=== PATIENT | male | born 1930 | race Caucasian/White ===

== ENCOUNTER 2016-12-05 22:09 | Inpatient (IN) | payer MEDICARE, OTHER ==
--- NOTE | ~2016-12-05 | HP ---
History And Physical [place] [id number] [facility] [place]. [address] NAME: RAINER TJEADA JR : 29 STATUS : ADM Shiva PAT#: [id number] AGE: 86 ADM/REG DATE : 12/05/16 MR#: [id number] REPORT SERV DATE: 12/06/16 DICTATED BY: ZAIDA RANDALL DATE: 12/06/16 REPORT STATUS : Draft TRANSCRIBED BY: MODL DATE: 12/06/16 DATE OF ADMISSION: 12/05/2016 CHIEF COMPLAINT: An 86-year-old male, presenting with new onset of atrial fibrillation. HISTORY OF PRESENT ILLNESS: The patient's history was obtained through careful interview with the patient, coupled with review of [facility] medical records. The patient makes a point to note that he has had considerable stress recently. He became a in October 2013 and has been recently dating a "girlfriend," but there has been relational difficulty that he thinks is contributing to his illness. Of particular concern is that the patient has felt "dizzy" since about October 2016. He has had some shortness of breath characterized by dyspnea on exertion, but denies any orthopnea. He has noticed new onset lower extremity edema recently as well. He describes a sinus headache about 5/10 severity with some drainage. He has noticed some new onset palpitations as well, and over last few weeks, he has felt unsteady in his gait secondary to intermittent dizziness and palpitations. He has had a cough productive of a clear sputum, but has had a hoarseness to his voice associated with his dyspnea on exertion. No chest pain. Then, about three days ago, by the patient's estimate, he was walking outside in the field and suddenly became very dizzy. He collapsed to the ground and almost passed out. He had to sit on the ground for several minutes before he felt well enough to get up again, but he found that he lost his ability to speak for about 15 minutes and was slightly confused. He states that he went to [facility], was evaluated there for possible stroke and had a "negative" workup and was discharged from the emergency department. REVIEW OF SYSTEMS: Otherwise, a 14-point review of systems was obtained and was negative. PAST MEDICAL HISTORY: 1. Coronary artery disease, status post stent placement in 1998. Negative stress test in 2006. 2. Chronic kidney disease, stage III. Baseline creatinine of 1.5 to 2.2. 3. Elevated cholesterol. 4. Sinusitis. 5. Pneumonia, 2016. PAST SURGICAL HISTORY: 1. Bilateral knee surgery. 2. Nose fracture surgery. History And Physical [address] [place]. [address] NAME: RAINER TEJADA JR : 29 STATUS : ADM Shiva PAT#: [id number] AGE: 86 ADM/REG DATE : 12/05/16 MR#: [id number] REPORT SERV DATE: 12/06/16 DICTATED BY: ZAIDA RANDALL DATE: 12/06/16 REPORT STATUS : Draft TRANSCRIBED BY: LINA DATE: 12/06/16 3. Back surgery .. ALLERGIES: NO KNOWN DRUG ALLERGIES. SOCIAL HISTORY: Became a in October 2013. He lives alone in [place], [place]. He has two children, one live in [place], one child lives in [place]. No tobacco abuse history. No alcohol use history. 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 CURRENT MEDICATIONS: Include aspirin 81 mg p.o. daily, vitamin D, vitamin B12, multivitamin, Zocor 20 mg p.o. daily, eyedrops, some kind of diuretic medication, coenzyme Q10, folic acid, garlic supplement, fish oil. PHYSICAL EXAMINATION: VITAL SIGNS: Temperature 98.0, pulse 113, blood pressure 162/95, respiratory rate 15, O2 saturation 99% on room air. GENERAL: A pleasant, cooperative male. He is in no evidence of distress at this time. NEUROLOGICAL: Cranial nerves II through XII are intact and symmetrical. The patient has 5/5 strength in upper and lower extremities that is symmetrical. HEENT: Pupils equal, round, and reactive to light. No conjunctival pallor. No scleral icterus. Nares are patent. Oropharynx is clear of obstruction. Moist mucous membranes. NECK: Trachea midline. No thyromegaly. LYMPHS: No cervical lymphadenopathy. No supraclavicular lymphadenopathy. RESPIRATORY: The patient does have some scattered mild rhonchi on examination. There may be some wet crackles at the very base of lungs, but not too severe. No wheezes at this time. The patient has a nonlabored respiratory effort. CARDIOVASCULAR: Irregularly irregular with tachycardia. No murmurs, rubs, or gallops. The patient does have pitting lower extremity edema around the ankles and shins. ABDOMEN: Soft, nontender, nondistended. Normal bowel sounds auscultated throughout. No organomegaly. DERMATOLOGICAL: Warm and dry extremities. No pallor. No cyanosis. PSYCHIATRIC: The patient admits to feeling stressed and feels a bit anxious. He has somewhat anxious and animated affect. He is alert and oriented x3. LABORATORY DATA: White blood cell count 4.8, hemoglobin 12, hematocrit 37, platelets 121. Sodium 142, potassium 4.1, chloride 103, bicarb 26, BUN 25, creatinine 0.7, glucose 153. Brain natriuretic peptide 434. Troponin 0.06. INR 1.1. Lactic acid 1.0. Influenza negative. STUDIES: 1. Chest x-ray by my own evaluation may show some mild chronic interstitial lung disease process, though it seems rather nonspecific, may just be some mild chronic changes, but nothing acute by my own evaluation. There are no comparison chest x-rays in our system. 2. EKG by my own evaluation shows atrial fibrillation, atrial flutter, slight T-wave inversions in leads V4 through V6. History And Physical [address] [address] NAME: RAINER TEJADA JR : 29 STATUS : ADM Shiva PAT#: [id number] AGE: 86 ADM/REG DATE : 12/05/16 MR#: [id number] REPORT SERV DATE: 12/06/16 DICTATED BY: ZAIDA RANDALL DATE: 12/06/16 REPORT STATUS : Draft TRANSCRIBED BY: MODL DATE: 12/06/[address] scan of the brain without contrast shows no acute intracranial process. ASSESSMENT AND PLAN: 1. New atrial fibrillation. Check telemetry. Start a Cardizem drip IV. Start empiric Xarelto. Check an echocardiogram. Consult Dr. Teague, tag machine operator. 2. Transient ischemic attack. Suffered about three or four days ago. I believe it is likely related to this new onset atrial fibrillation. Start Xarelto. Continue aspirin. Check an echocardiogram. Check carotid ultrasound. Check telemetry. Check fasting lipid panel. 3. Cough, may be secondary to volume overload (?). We will try IV diuretic. Check procalcitonin. Place on DuoNeb nebulizers. Negative influenza screen was done. 4. Chronic kidney disease, stage III. 5. Volume overload, mild, but we will try IV diuretic for a day, possibly exacerbated and caused by atrial fibrillation (?). Check an echocardiogram. KPL/MODL Zaida Randall M.D. / [id number] CC: Juan Fisher Jr, MD David Wendt, M.D. William L. Horton, M.D. Lianne Partida MD
--- NOTE | ~2016-12-05 | DS ---
Discharge Summary [facility] [address] [place]. [address] NAME: RAINER TEJADA JR : 29 STATUS : DIS IN PAT#: [id number] AGE: 86 ADM/REG DATE : 12/06/16 MR#: [id number] REPORT SERV DATE: 12/08/16 DICTATED BY: JR. FISHER WILLIAM JOHN DATE: 12/07/16 REPORT STATUS : Draft TRANSCRIBED BY: MODL DATE: 12/07/16 ADMISSION DATE: 12/06/2016 DISCHARGE DATE: 12/07/2016 DISCHARGE DIAGNOSES: Include: 1. New-onset atrial fibrillation with reversion to sinus rhythm. 2. Transient ischemic attack four days prior to presentation. 3. Nocturnal cough related to drainage. 4. Chronic kidney disease stage III with acute kidney injury. 5. Volume overload, resolved. 6. Left lower extremity edema. 7. Aortic stenosis. OPERATIONS/PROCEDURES AND TREATMENTS: Include: 1. CT of the brain done 12/05/2016, which showed no acute intracranial hemorrhage or other acute intracranial pathology. There was mild diffuse cerebral involutional changes and deep white matter chronic microvascular ischemic changes with microvascular ischemic changes most prominent in the posterior atria of the lateral ventricle. 2. Portable chest x-ray done 12/05/2016, which showed no acute cardiopulmonary abnormality. There were calcified granulomas in the left lung base with what appeared to be calcified pleural plaques on the right. 3. Carotid blood flow study done 12/06/2016 showed category 1 stenosis bilaterally with antegrade flow bilaterally in the vertebrals. 4. Followup chest x-ray on 12/06/2016 with Cardiomegaly and similar findings to prior study. 5. Echocardiogram done on 12/06/2016, which showed an ejection fraction about 50% with left atrial and ventricular dilation. Normal right ventricle. The right atrium was enlarged. There was [id number] aortic stenosis with a gradient of 25 mmHg and aortic valve area of 0.72 centimeters squared. 6. Venous Doppler ultrasound of the left lower extremity showed no evidence of deep vein thrombosis. DISCHARGE MEDICATIONS: Include: 1. Aspirin 81 mg orally daily. 2. Vitamin B12 3000 mcg orally every morning. 3. Diltiazem CD 240 mg orally daily. 4. Multivitamin one tablet orally daily. 5. Xarelto 20 mg orally daily. 6. Simvastatin 20 mg orally daily. 7. Lasix 20 mg orally daily. 8. CoQ10 one tablet orally daily. 9. Folate one tablet every morning. 10.Garlic supplement. 11.Vitamin B complex. 12.Fish oil every morning. 13.Soft lens products, ophthalmologically daily. Discharge Summary [place] [id number] [place]. [address] NAME: RAINER TEJADA JR : 28 STATUS : DIS IN PAT#: [id number] AGE: 86 ADM/REG DATE : 12/06/16 MR#: [id number] REPORT SERV DATE: 12/08/16 DICTATED BY: JR. FISHER WILLIAM JOHN DATE: 12/07/16 REPORT STATUS : Draft TRANSCRIBED BY: MODL DATE: 12/07/16 HOSPITAL COURSE: The patient is an 86-year-old male, who presented to the emergency room on 12/05/2016 with new onset atrial fibrillation. The patient makes point that he has had considerable stress in his life recently with relationship difficulties. Of particular concern, the patient felt dizzy since October. He has had some shortness of breath with dyspnea on exertion. He denied orthopnea, also noticed new onset lower extremity edema recently and sinus headache. For complete details of the patient's presenting history, physical, and data, please see Dr. Padilla's dictated history and physical. The patient was admitted to the Clinical Decision Unit with new-onset atrial fibrillation. He was seen in consultation by Cardiology, Dr. Eber Perez and recommendation was to continue the oral diltiazem, start on Xarelto and cardiovert the following morning. The patient had an echocardiogram, which is detailed above. He spontaneously reverted to sinus rhythm. Therefore, the CARLOS and cardioversion were canceled. He is discharged home on Xarelto and oral diltiazem and is to follow up with Dr. Teague of Cardiology per his instructions. Regarding the patient's TIA suffered four days prior to presentation, this is certainly possibly due to unknown atrial fibrillation. He had carotid ultrasound as detailed above and a CT of the brain, which showed no abnormalities. He is discharged home on aspirin as well as Xarelto. Regarding the patient's xxkci-hn-rbnpfux kidney disease, he was diuresed. After reversion to sinus rhythm, the patient had some acute kidney injury with a BUN of 29 and creatinine of 2. He is being fluid bolused with 500 mL prior to discharge. The patient will need follow up renal function studies. Regarding the patient's left lower extremity edema, the patient says this has been swollen chronically. A venous Doppler ultrasound showed no evidence of clot. The patient is to be discharged home today, 12/07/2016. He will follow up with Dr. Teague per his instructions and primary care physician, Dr. Juan Bates. DISCHARGE DIET: Regular. ACTIVITY: As tolerated. For discharge exam and laboratory, please see my daily progress note. This discharge took 33 minutes for patient encounter, coordination of care, and documentation. HERB/LINA Juan Terrell Discharge Summary [facility] [address] [facility] [place]. [address] NAME: MALLORY NOLASCORAINERFRANK NICHOLS : 28 STATUS : DIS IN PAT#: [id number] AGE: 86 ADM/REG DATE : 12/06/16 MR#: [id number] REPORT SERV DATE: 12/08/16 DICTATED BY: JR. FISHER WILLIAM JOHN DATE: 12/07/16 REPORT STATUS : Draft TRANSCRIBED BY: LINA DATE: 12/07/16 Jr Fisher MD / [id number] CC: Juan Fisher Jr, MD William L. Horton, M.D.
--- NOTE | ~2016-12-05 | CN ---
Consultation Report [place] [id number] [facility] [place]. [address] NAME: RAINER COPPOLA JR : 29 STATUS : ADM IN [facility]#: [id number] AGE: 86 ADM/REG DATE : 12/06/16 MR#: [id number] REPORT SERV DATE: 12/06/16 DICTATED BY: EBER ROYAL DATE: 12/06/16 REPORT STATUS : Draft TRANSCRIBED BY: MODL DATE: 12/06/16 CONSULT DATE OF CONSULTATION: 12/06/2016 REASON FOR CONSULTATION: New onset atrial fibrillation with RVR. HISTORY OF PRESENT ILLNESS: Mr. Coppola is a pleasant 86-year-old man with a history of CAD status post remote PCI, stage III CKD, hyperlipidemia, and probable recent transient ischemic attack, who presents to [facility] with atrial fibrillation with RVR (new). He is a fair historian, therefore, the following information has been obtained through discussions with him as well as careful review of medical records. The patient reports that he had a syncopal spell while walking in the field approximately three days prior to admission. He has been dizzy however since October of 2016 and he went to the ER for this in early October approximately one and half months ago. He was told at that time that he had an arrhythmia and to follow up with Cardiology. He has a pending appointment with Dr. Hasmukh Teague. Since that time, he had this interval episode of syncope approximately three days ago that caused him to present to [facility] for further care and evaluation. He was found to be in atrial fibrillation with RVR. In addition, he has been having a cough as well as some swelling in his legs (left more than right). ALLERGIES: NO KNOWN DRUG ALLERGIES. PAST MEDICAL HISTORY: As above. SOCIAL HISTORY: The patient lives at home with his girlfriend. He denies drinking alcohol, smoking, or doing drugs. He is a former smoker. FAMILY HISTORY: Noncontributory for premature cardiovascular disease. REVIEW OF SYSTEMS: As above, all other systems otherwise negative. HOME MEDICATIONS: 1. Aspirin 81 mg p.o. daily. 2. Vitamin B12. 3. Multivitamin. 4. Zocor 20 mg p.o. daily. 5. Eyedrops. 6. Coenzyme Q10. 7. Garlic supplement. 8. Fish oil. 9. Folic acid. Consultation Report [place] [id number] [place]. [address] NAME: RAINER COPPOLA JR : 29 STATUS : ADM IN PAT#: [id number] AGE: 86 ADM/REG DATE : 12/06/16 MR#: [id number] REPORT SERV DATE: 12/06/16 DICTATED BY: EBER ROYAL DATE: 12/06/16 REPORT STATUS : Draft TRANSCRIBED BY: MODL DATE: 12/06/16 PHYSICAL EXAMINATION: VITAL SIGNS: Blood pressure 131/58, pulse 60s now in sinus rhythm, and temperature 97.9. GENERAL: Well developed, well nourished, no acute distress. NEUROLOGIC: Awake, alert and oriented x3; no focal deficits, appropriate mood. HEENT: Moist mucous membranes, anicteric sclerae, no nasal discharge. NECK: No JVD, no carotid bruit. LUNGS: Clear to auscultation bilaterally, no wheezes, rales or rhonchi. CARDIAC: Regular rate and rhythm. Normal S1, S2. A 2/6 systolic murmur at the cardiac apex. ABDOMEN: Soft, non-tender, non-distended, no rebound or guarding. EXTREMITIES: No pitting edema, normal distal pulses. SKIN: Mild bleeding on his left forearm from an excoriated lesion, otherwise grossly intact without obvious active rash. PERTINENT TEST FINDINGS: Potassium 3.9, creatinine 1.65 down from 1.77. White blood cell count 5.1, hemoglobin 11.9. TSH 4.68. BNP 413. Troponin 0.04 and 0.05. EKG with atrial fibrillation with RVR yesterday and earlier today. Repeat EKG with sinus rhythm with a PAC. IMPRESSION AND PLAN: Mr. Coppola is an 86-year-old gentleman with a history of coronary disease status post remote PCI approximately 18 years ago, stage III CKD, probable TIA recently, hyperlipidemia, and hypertension, who presents with new onset atrial fibrillation with RVR and has now spontaneously converted on a diltiazem drip to sinus rhythm. Accordingly, I have the following recommendations by problem below: 1. Atrial fibrillation with RVR-resolved. Continue oral diltiazem as written, converting to long-acting once a day, diltiazem tomorrow if he tolerates it without any hemodynamic instability today. Otherwise, continue him on Xarelto as written. He has a history of questionable TIA in the recent past, therefore he requires full anticoagulation. 2. Probable recent TIA-as above. 3. Lower extremity edema-left greater than right, possibly suggestive of DVT. Check venous duplex as well as echocardiogram. 4. Hyperlipidemia-controlled, continue Zocor as written. 5. CAD, status post PCI-remote intervention many years ago, greater than 10 to 15 years ago. He has no anginal symptoms at this time or anginal equivalent that I am able to discern. His cardiac enzymes are also not remarkable. Therefore no further workup is necessary at this time from an ischemic standpoint. STEFANO/LINA Eber Royal MD / [id number] Consultation Report [address] [address] NAME: RAINER COPPOLA JR : 29 STATUS : ADM IN PAT#: [id number] AGE: 86 ADM/REG DATE : 12/06/16 MR#: [id number] REPORT SERV DATE: 12/06/16 DICTATED BY: EBER ROYAL DATE: 12/06/16 REPORT STATUS : Draft TRANSCRIBED BY: LINA DATE: 12/06/16 CC: Juan Fisher Jr, MD William L. Horton, M.D.
[2016-12-05 18:48] LABS: BASOPHILS 0 %; EOSINOPHILS 0.2 %; EOSINOPHILS ABSOLUTE 0.01 10/3/uL (0.0-0.53); HEMATOCRIT 37.4 % (40.0-51.0); IMMATURE GRANULOCYTES 0.2 %; IMMATURE GRANULOCYTES ABSOLUTE 0.01 10/3/uL (0.0-0.11); LYMPHOCYTES 29.3 %; LYMPHOCYTES ABSOLUTE 1.41 10/3/uL (0.67-4.30); MANUAL DIFF NO %; MEAN CORPUS HGB CONC 32.1 g/dL (32.0-36.0); MEAN CORPUSCULAR HEMOGLOB 28.5 pg (26.0-34.0); MEAN CORPUSCULAR VOLUME 88.8 fL (80-100); MEAN PLATELET VOLUME 11.2 fL (9.2-13.0); MONOCYTES 5.6 %; MONOCYTES ABSOLUTE 0.27 10/3/uL (0.21-1.20); NEUTROPHILS 64.7 %; NEUTROPHILS ABSOLUTE 3.11 10/3/uL (2.02-8.40); PLATELET COUNT 121 10/3/uL (150-400); RBC DISTRIBUTION WIDTH 14.7 % (12.0-16.0); RED CELL COUNT 4.21 10/6/uL (4.7-6.1); WHITE BLOOD CELLS 4.8 10/3/uL (4.5-10.5)
[2016-12-05 18:56] LABS: INTERNATIONAL NORMAL RATI 1.1 UNITS (-)
[2016-12-05 18:57] LABS: PARTIAL THROMBO TIME 29.7 SEC (22.5-37.2)
[2016-12-05 19:06] LABS: BUN (BLOOD UREA NITROGEN) 25 MG/DL (6-23); CALCIUM, SERUM 9.1 MG/DL (8.5-10.4); CHEST PAIN PROFILE TAT 0 Hrs 24 Mins; CHLORIDE, SERUM 103 MMOL/L (96-112); CO2 (CARBON DIOXIDE) 26 MMOL/L (24-34); CREATININE 1.77 MG/DL (0.70-1.30); GFR AFRICAN AMERICAN 39 ML/MIN (>=60); GFR NON AFRICAN AMERICAN 34 ML/MIN (>=60); GLUCOSE, SERUM 153 MG/DL (60-99); POTASSIUM, SERUM 4.1 MMOL/L (3.5-5.3); SODIUM, SERUM 142 MMOL/L (135-148); TROPONIN I 0.04 NG/ML (<0.05)
[2016-12-05 19:13] LABS: PROTIME (NOT ORD) 14.3 SEC (12.0-14.5)
[2016-12-05 22:18] LABS: INFLUENZA A SCREEN NEGATIVE (NEGATIVE); INFLUENZA B SCREEN NEGATIVE (NEGATIVE)
[2016-12-05] MEDS ORDERED: ZOCOR20 PO (22:50)
[2016-12-05] MEDS ORDERED: ASAB PO (22:51)
[2016-12-05] MEDS ORDERED: CO Q-10 PO (22:51)
[2016-12-05] MEDS ORDERED: L20 PO (22:51)
[2016-12-05] MEDS ORDERED: FOLIC ACID PO (22:52)
[2016-12-05] MEDS ORDERED: GARLIC SUPPLEMENT PO (22:52)
[2016-12-05] MEDS ORDERED: VITAMIN B PO (22:52)
[2016-12-05] MEDS ORDERED: VITAMIN B-121000 MC1 PO (22:52)
[2016-12-05] MEDS ORDERED: MULTIVIT/MIN PO (22:53)
[2016-12-05] MEDS ORDERED: REFRES1 OPH (22:53)
[2016-12-05] MEDS ORDERED: FISH OIL PO (22:53)
[2016-12-06 03:47] LABS: BASOPHILS 0 %; EOSINOPHILS 0.4 %; EOSINOPHILS ABSOLUTE 0.02 10/3/uL (0.0-0.53); HEMOGLOBIN 11.9 g/dL (13.6-17.8); IMMATURE GRANULOCYTES 0.2 %; IMMATURE GRANULOCYTES ABSOLUTE 0.01 10/3/uL (0.0-0.11); LYMPHOCYTES 23.3 %; LYMPHOCYTES ABSOLUTE 1.19 10/3/uL (0.67-4.30); MEAN CORPUS HGB CONC 32.2 g/dL (32.0-36.0); MEAN CORPUSCULAR HEMOGLOB 28.5 pg (26.0-34.0); MEAN CORPUSCULAR VOLUME 88.5 fL (80-100); MEAN PLATELET VOLUME 10.8 fL (9.2-13.0); MONOCYTES 13.9 %; MONOCYTES ABSOLUTE 0.71 10/3/uL (0.21-1.20); NEUTROPHILS 62.2 %; NEUTROPHILS ABSOLUTE 3.17 10/3/uL (2.02-8.40); PLATELET COUNT 110 10/3/uL (150-400); RBC DISTRIBUTION WIDTH 14.7 % (12.0-16.0); RED CELL COUNT 4.18 10/6/uL (4.7-6.1); WHITE BLOOD CELLS 5.1 10/3/uL (4.5-10.5)
[2016-12-06 03:48] LABS: MANUAL DIFF NO %
[2016-12-06 03:54] LABS: INTERNATIONAL NORMAL RATI 1.1 UNITS (-); PARTIAL THROMBO TIME 29.2 SEC (22.5-37.2); PROTIME (NOT ORD) 13.9 SEC (12.0-14.5)
[2016-12-06 04:10] LABS: A/G RATIO 1.3 (0.7-1.9); ALBUMIN 3.7 G/DL (3.5-5.0); BUN (BLOOD UREA NITROGEN) 25 MG/DL (6-23); CALCIUM, SERUM 8.5 MG/DL (8.5-10.4); CHLORIDE, SERUM 105 MMOL/L (96-112); CHOLESTEROL 120 MG/DL (< 200); CO2 (CARBON DIOXIDE) 26 MMOL/L (24-34); CREATININE 1.65 MG/DL (0.70-1.30); GFR AFRICAN AMERICAN 43 ML/MIN (>=60); GFR NON AFRICAN AMERICAN 37 ML/MIN (>=60); GLOBULIN 2.8 G/DL (2.5-4.1); HDL CHOLESTEROL 59 MG/DL (> 39); LDL CHOLESTEROL 48 MG/DL (< 130); NON-HDL CHOLESTEROL 61 MG/DL (< 160); POTASSIUM, SERUM 3.9 MMOL/L (3.5-5.3); SGOT(AST) 20 U/L (5-40); SGPT(ALT) 26 U/L (5-65); SODIUM, SERUM 143 MMOL/L (135-148); TOTAL PROTEIN 6.5 G/DL (6.0-8.5); TRIGLYCERIDE 66 MG/DL (< 150); TROPONIN I 0.05 NG/ML (<0.05)
[2016-12-06 04:11] LABS: ALKALINE PHOSPHATASE 85 U/L (45-117); GLUCOSE, SERUM 121 MG/DL (60-99); TOTAL BILIRUBIN 1.2 MG/DL (0-1.2)
[2016-12-06 06:16] LABS: PROCALCITONIN <0.05 ng/mL (<0.5)
[2016-12-07 04:01] LABS: CALCIUM, SERUM 8.7 MG/DL (8.5-10.4); CHLORIDE, SERUM 103 MMOL/L (96-112); CO2 (CARBON DIOXIDE) 26 MMOL/L (24-34); CREATININE 1.99 MG/DL (0.70-1.30); GFR AFRICAN AMERICAN 34 ML/MIN (>=60); GFR NON AFRICAN AMERICAN 29 ML/MIN (>=60); GLUCOSE, SERUM 109 MG/DL (60-99); SODIUM, SERUM 141 MMOL/L (135-148)
[2016-12-07 04:04] LABS: BUN (BLOOD UREA NITROGEN) 29 MG/DL (6-23)
[2016-12-07] MEDS ORDERED: CARDCD240 PO (12:10)
[2016-12-07] MEDS ORDERED: XARELTO20 MG PO (12:10)
== END 2016-12-07 13:51 | disposition home or self-care (01) | DRG 309 ==
LOC: ER 22:09 → CDU1 23:43
PROVIDERS: Emergency Medicine; Internal Medicine; Nurse Practitioner Acute Care
DX: I48.0 Paroxysmal atrial fibrillation (principal); G45.9 Transient cerebral ischemic attack, unspecified; N17.9 Acute kidney failure, unspecified; E87.70 Fluid overload, unspecified; I35.0 Nonrheumatic aortic (valve) stenosis; I25.10 Atherosclerotic heart disease of native coronary artery without angina pectoris; N18.3 Chronic kidney disease, stage 3 (moderate); E78.00 Pure hypercholesterolemia, unspecified; I48.92 Unspecified atrial flutter; E78.5 Hyperlipidemia, unspecified; Z95.5 Presence of coronary angioplasty implant and graft; Z87.01 Personal history of pneumonia (recurrent); Z79.82 Long term (current) use of aspirin; Z87.891 Personal history of nicotine dependence
CPT/HCPCS: 70450; 71010; 80048; 80053; 80061; 83605; 83735; 83880; 84145; 84443; 84484; 85025; 85610; 85730; 87804; 93005; 93306; 93880; 93971; 94640; 96374; 97161-GP; 99285; A9270-GY; G8978-CJ-GP; G8980-CJ-GP